=== PATIENT | female | born 1955 | race Two or more races ===

== ENCOUNTER 2021-10-05 15:31 | Inpatient (IN) | payer OTHER ==
[~2021-10-05] VITALS: Ht 160 cm; Wt 113.4 kg
--- NOTE | 2021-10-05 15:51 | NUR ---
SE LLAMA PACIENTE Y NO RESPONDE
[2021-10-05] MEDS ORDERED: SYNTHROID88 MCG (17:32)
--- NOTE | 2021-10-05 17:32 | NUR ---
PTE SE RECIBE POR ANEMIA REFIERE PTE.
--- NOTE | 2021-10-05 17:58 | NUR ---
SE ORIENTA A PACIENTE SOBRE TRATAMIENTO ORDENADO POR DRA. PICHARDO, LA MISMA VERBALIZA ENTENDER. VITO DOYLE COLECTA MUESTRAS ORDENADAS Y TUBOS PILOTOS PARA 3 UNIDADES DE PRBC EN HOLD AL MOMENTO. SE HACE ENTREGA DE CONSENTIMIENTO A PACIENTE PARA FIRMAR.[id number] SE COMUNICA CON [facility] KARY[employer]teve DOMINGO REFIERE QUE PACIENTE NO TIENE RECORD. SE COLECTA TERCER TUBO JOHN PARA TIPO Y LISA. SE ROTULAN CORRECTAMENTE TUBOS PILOTOS Y SE ENTREGA A PERSONAL DE LABORATORIO. SE COMUNICA CON PERSONAL DE [facility] Y SE NOTIFICA REQUISICION, REFIEREN QUE ENVIARAN CLARA A RECOGER LA MISMA. VITO DOYLE COLOCA VENOPUNCION PATENTE, ANMOL DE ERITEMA Y EDEMA, AL MOMENTO EN SALINE LOCK #18 L+ PTE CON VENOPUNCION DE AMBULANCIA #18 L+.
--- NOTE | 2021-10-05 21:38 | NUR ---
SE COMUNICA CON PERSONAL DE [facility] SRA. DOMINGO, PARA ACTIVAR UNIDADES DE PRBC EN HOLD. LA MISMA VERBALIZA QUE COMENZARAN A TRABAJARLO.
--- NOTE | 2021-10-06 01:11 | NUR ---
PERSONAL DE [facility] REFIERE QUE DEBEMOS MORRO MUESTRAS DE ANTICUERPOS YA QUE PTE KAT POSITIVO A ANITCUERPOS EN TUBOS PILOTOS.
--- NOTE | 2021-10-06 05:10 | NUR ---
PERSONAL DE LABORATORIO REFIERE QUE [facility] AUN NO LEGGETT TRAIDO PRBC DE PTE.
--- NOTE | 2021-10-06 07:13 | NUR ---
SE RECIBE PACIENTE FEMENINA ALERTA Y ORIENTADA EN [place] ESFERAS LA CUAL SE OBSERVA CON BUEN PATRON RESPIRATORIO, CANALIZACION PANTENTE, LIPIA Y SECA CON [id number] AT 45ML/HR. PACIENTE PENDIENTE A CONSULTA CON DRA SANDHU Y TRANSFUSION DE 3 UNIDADES DE PRBCS. SE MANTIENE PACIENTE EN OBSERVACION.
== END 2021-10-14 13:53 | disposition home or self-care (01) | DRG 756 ==
LOC: ER 15:31 → MEDJ 10-06 08:55 → SURH 10-06 08:55 → SEC-K 10-06 15:14 → SURH 10-06 15:44
PROVIDERS: ADMIT Internal Medicine; ATTEND Internal Medicine
PROC: BW21YZZ Computerized Tomography (CT Scan) of Abdomen and Pelvis using Other Contrast (ICD-10-PCS; 2021-10-05)
PROC: 30233N1 Transfusion of Nonautologous Red Blood Cells into Peripheral Vein, Percutaneous Approach (ICD-10-PCS; principal; 2021-10-06)
PROC: BB24YZZ Computerized Tomography (CT Scan) of Bilateral Lungs using Other Contrast (ICD-10-PCS; 2021-10-07)
PROC: B246ZZZ Ultrasonography of Right and Left Heart (ICD-10-PCS; 2021-10-10)
PROC: 4A12X4Z Monitoring of Cardiac Electrical Activity, External Approach (ICD-10-PCS; 2021-10-11)
DX: C54.1 Malignant neoplasm of endometrium (principal); D63.0 Anemia in neoplastic disease; D50.0 Iron deficiency anemia secondary to blood loss (chronic); I10 Essential (primary) hypertension; N93.8 Other specified abnormal uterine and vaginal bleeding; E03.8 Other specified hypothyroidism; Z86.16 Personal history of COVID-19; E66.01 Morbid (severe) obesity due to excess calories

== ENCOUNTER 2021-11-08 08:03 | Emergency (ER) | payer OTHER ==
[~2021-11-08] VITALS: Ht 160 cm; Wt 113.4 kg
[~2021-11-08 08:03] MED LIST: SYNTHROID88 MCG
== END 2021-11-08 14:01 | disposition home or self-care (01) ==
LOC: ER 08:03
DX: N93.8 Other specified abnormal uterine and vaginal bleeding (principal); I10 Essential (primary) hypertension

== ENCOUNTER 2021-12-27 14:27 | Inpatient (IN) | payer OTHER ==
[~2021-12-27] VITALS: Ht 162.6 cm; Wt 111.1 kg
[2021-12-27] MEDS ORDERED: FOLIC ACID20 MG PO (15:10)
[2021-12-27] MEDS ORDERED: FUSION PLUS CA1 EACH PO (15:10)
[2021-12-27] MEDS ORDERED: COZAAR100 MG PO (15:10)
[2021-12-29] MEDS ORDERED: NIFEDIPINE ER90 M1 (08:13)
== END 2021-12-31 10:15 | disposition home or self-care (01) | DRG 741 ==
LOC: SURH 12-28 10:15 → O/R 12-29 05:43 → OB/GYN 12-29 10:53
PROVIDERS: ADMIT Obstetrics & Gynecology Gynecologic Oncology; ATTEND Obstetrics & Gynecology Gynecologic Oncology
PROC: 0UT20ZZ Resection of Bilateral Ovaries, Open Approach (ICD-10-PCS; 2021-12-29)
PROC: 0UT70ZZ Resection of Bilateral Fallopian Tubes, Open Approach (ICD-10-PCS; 2021-12-29)
PROC: 07BC0ZZ Excision of Pelvis Lymphatic, Open Approach (ICD-10-PCS; 2021-12-29)
PROC: 0UT90ZZ Resection of Uterus, Open Approach (ICD-10-PCS; principal; 2021-12-29 10:15)
DX: C54.1 Malignant neoplasm of endometrium (principal); E66.01 Morbid (severe) obesity due to excess calories; D50.0 Iron deficiency anemia secondary to blood loss (chronic); I10 Essential (primary) hypertension; N93.8 Other specified abnormal uterine and vaginal bleeding; E03.8 Other specified hypothyroidism